=== PATIENT | female | born 1965 | race Caucasian/White ===

== ENCOUNTER 2017-11-24 12:50 | Emergency (ER) | payer MEDICARE ==
[~2017-11-24] VITALS: Ht 175.3 cm; Wt 121.1 kg
[~2017-11-24 12:50] MED LIST: COLLAGEN PO; CRANBERRY PO; DOCSEN PO; FISH1000 PO; HYDACE5 PO; IRON PO
[2017-11-24] MEDS ORDERED: METF500C PO (13:49)
== END 2017-11-24 14:23 | disposition home or self-care (01) ==
LOC: ER 12:50
DX: R10.31 Right lower quadrant pain (principal); Z79.84 Long term (current) use of oral hypoglycemic drugs
CPT/HCPCS: 99281

== ENCOUNTER → 2018-09-28 | Outpatient (CLI) | payer OTHER ==
[~2018-09-28] MED LIST changes: +METF500C PO
== END | disposition home or self-care (01) ==
LOC: LAB SHORT 14:10 → PLD 14:10
DX: B35.1 Tinea unguium (principal); L60.2 Onychogryphosis
CPT/HCPCS: 88305; 88312

== ENCOUNTER → 2019-01-30 | Outpatient (CLI) | payer OTHER ==
[~2019-01-30] MED LIST changes: +ACET500 PO; +Ascorbic Acid500 MG PO; +Cinnamon500 MG PO; +FERSU300 PO; +FISH OIL PO; +FLAX OIL1000 MG PO; +GABA100 PO; +HYDR1TAB94 PO; +Hair, Skin & N1 EACH PO; +LISI20 PO; +LUTEIN10 MG PO; +METF500 PO; +NYSTRITC TOP; +OMEP20ER PO; +PRENATAL TABLE1 EAC2 PO; +VITAMIN D-32000 UNIT PO; +[UNRECOGNIZED DRUG - OTHER] PO
== END ==
LOC: PLD 07:24 → LAB SHORT 07:24
DX: D17.1 Benign lipomatous neoplasm of skin and subcutaneous tissue of trunk (principal)
CPT/HCPCS: 88304

== ENCOUNTER 2019-03-09 09:46 | Day surgery (SDC) | payer OTHER ==
[~2019-03-09] VITALS: Ht 175.3 cm; Wt 110.9 kg
[~2019-03-09 09:46] MED LIST changes: -HYDR1TAB94 PO
--- NOTE | 2019-03-09 10:39 | NUR ---
History, Chart, Medications and Allergies reviewed before start of procedure. Patient confirms NPO status and agrees with scheduled surgery. Lungs clear T/O to Auscultation. Patient reports completing Chlorhexadine shower X2 prior to admission to hospital. Pre-Op teaching done. Pt verbalizes understanding. Patient States Post-Procedure ride home has been arranged.
--- NOTE | 2019-03-09 10:40 | NUR ---
PATIENT HAS NO JEWELRY ON AT ADMIT TO [facility].
--- NOTE | 2019-03-09 11:52 | NUR ---
PATIENT UP TO VOID IMMEDIATELY PRE-SURGICALLY. IV IN R HAND INFILTRATED AND OK'D WITH DR RAMIREZ, THAT WE WILL HAVE ONLY THE ONE WELL RUNNING IV IN THE L HAND.
--- NOTE | 2019-03-09 18:38 | NUR ---
ASSUMED CARE FROM [facility] AT APPROX 1800. SINCE ASSUMING CARE, PT REPORTING MININAL PAIN TO ABD. DRESSINGS TO ABD REMAIN CDI. PT IMPLEMENT MECHANIC WAS AT BEDSIDE AND DR. LACY CAME IN TO SPEAK WITH HER AND PT'S SISTER VIA TELEPHONE. PT IS UP WITH 1 SBA FOR BRP. PT DID VOID. IV IS SL. OFFERING PT CLEAR LIQS. CALL LIGHT WITHIN REACH. POST OP VSS AND IN PROGRESS.
--- NOTE | 2019-03-10 06:21 | NUR ---
POD 1 S/P HERNIA REPAIR. PT VSS T/O NIGHT, DRESSINGS CDI. PAIN MGD W/ORAL PAIN MEDS W/REP RELIEF. PT REESE CLEAR LIQ PO, NO C/O N/V, REP NO FLATUS YET. PT UP IN ROOM W/SBA, IS USING CALL LIGHT FOR ASSISTANCE, WILL CONT TO MONITOR UNTIL REP GIVEN TO ONCOMING RN.
--- NOTE | 2019-03-10 10:19 | NUR ---
NO NAUSEA/NO FLATUS PT DENIES NAUSEA AFTER BREAKFAST BUT REPORTS HAS NOT PASSED ANY FLATUS.
--- NOTE | 2019-03-10 15:46 | NUR ---
PASSED FLATUS PT REPORTS HUNGRY. PROVIDED TURKEY SANDWICH.
[2019-03-10] MEDS ORDERED: HYDR1TAB94 PO (16:24)
--- NOTE | 2019-03-10 16:47 | NUR ---
DISCHARGED. PT PASSING FLATUS. TOLERATED SANDWICH. REVIEWED DC PAPERWORK; PT VERBALIZED UNDERSTANDING. DC'D IV TO L HAND, CATHETER INTACT. PT LEFT UNIT IN WC, ACCOMPANIED BY RIDE WITH POSSESSIONS, PRESCRIPTION, AND DC PAPERWORK IN HAND.
== END 2019-03-10 16:42 | disposition home or self-care (01) ==
LOC: ORSCMMR 09:46 → ORD 11:15 → ORSCMMR 11:15 → SURS 18:04 → ORSCMMR 18:04 → SURS 03-10 16:42 → ORSCMMR 03-10 16:42 → SURS 03-10 16:42
PROVIDERS: Surgery
PROC: 0WJP0ZZ Inspection of Gastrointestinal Tract, Open Approach (ICD-10-PCS; principal; 2019-03-09 11:15)
PROC: 0DNU4ZZ Release Omentum, Percutaneous Endoscopic Approach (ICD-10-PCS; principal; 2019-03-09 11:15)
PROC: 0YU54JZ Supplement Right Inguinal Region with Synthetic Substitute, Percutaneous Endoscopic Approach (ICD-10-PCS; principal; 2019-03-09 11:15)
PROC: 8E0W4CZ Robotic Assisted Procedure of Trunk Region, Percutaneous Endoscopic Approach (ICD-10-PCS; principal; 2019-03-09 11:15)
PROC: 0DQ80ZZ Repair Small Intestine, Open Approach (ICD-10-PCS; principal; 2019-03-09 11:15)
DX: K40.90 Unilateral inguinal hernia, without obstruction or gangrene, not specified as recurrent (principal); K66.0 Peritoneal adhesions (postprocedural) (postinfection); S36.408A Unspecified injury of other part of small intestine, initial encounter; I10 Essential (primary) hypertension; E11.9 Type 2 diabetes mellitus without complications; Z87.891 Personal history of nicotine dependence; E66.01 Morbid (severe) obesity due to excess calories; Z68.37 Body mass index [BMI] 37.0-37.9, adult; Z79.899 Other long term (current) drug therapy
CPT/HCPCS: 49650; 49329; S2900; 82947; A9270-GY; C1781; J0690; J1100; J2250; J2405; J2704; J3010; J7120

== ENCOUNTER 2019-08-30 09:15 | Day surgery (SDC) | payer OTHER ==
[~2019-08-30] VITALS: Ht 177 cm; Wt 115.6 kg
[~2019-08-30 09:15] MED LIST changes: +HYDR1TAB94 PO
--- NOTE | 2019-08-30 10:43 | NUR ---
History, Chart, Medications and Allergies reviewed before start of procedure.Patient confirms NPO status and agrees with scheduled surgery. Lungs clear T/O to Auscultation.Patient states colon prep results clear.
--- NOTE | 2019-08-30 10:50 | NUR ---
08/30/19 1050 Jess Padilla PATIENT DETERMINED TO BE ASA APPROPRIATE FOR PROPOFOL SEDATION PRIOR TO START OF PROCEDURE BY DR. COLVIN. 3-LEAD EKG REVIEWED WITH PHYSICIAN PRIOR TO START OF PROCEDURE. PATIENT CONFIRMS NPO STATUS AND AGREES WITH SCHEDULED PROCEDURE. History, Chart, Medications and Allergies reviewed before start of procedure. MONITOR INTACT WITH CONTINUOUS PULSE OXIMETRY AND INTERMITTENT BP. O2 VIA N/C INTACT THROUGHOUT SEDATION/PROCEDURE.
--- NOTE | 2019-08-30 11:37 | NUR ---
Discharge instructions reviewed with patient. Patient verbalizes understanding. Copy given to patient to take home. Patient up to Ambulate independently. Gait steady. TOLERATING PO. TALKATIVE. Discharged via wheelchair to private car for ride home WITH CAREGIVER
== END 2019-08-30 23:05 | disposition home or self-care (01) ==
LOC: ORSCMMR 09:15 → ORD 10:30 → ORSCMMR 10:30
PROVIDERS: Internal Medicine Gastroenterology
PROC: 0DBK8ZX Excision of Ascending Colon, Via Natural or Artificial Opening Endoscopic, Diagnostic (ICD-10-PCS; principal; 2019-08-30 10:30)
PROC: 0DBN8ZX Excision of Sigmoid Colon, Via Natural or Artificial Opening Endoscopic, Diagnostic (ICD-10-PCS; principal; 2019-08-30 10:30)
DX: Z12.11 Encounter for screening for malignant neoplasm of colon (principal); D12.2 Benign neoplasm of ascending colon; K63.5 Polyp of colon; I10 Essential (primary) hypertension; Z79.84 Long term (current) use of oral hypoglycemic drugs; Z79.899 Other long term (current) drug therapy
CPT/HCPCS: 82947; 88305; J2704; J3010; J7120

== ENCOUNTER → 2019-09-07 | Outpatient (CLI) | payer OTHER ==
[2019-09-07 15:55] LABS: BASOPHILS ABSOLUTE AUTO 0.03 K/mm3 (0.00-0.23); BASOPHILS PERCENT AUTO 1 % (0-2); EOSINOPHILS ABSOLUTE AUTO 0.07 K/mm3 (0.00-0.68); EOSINOPHILS PERCENT AUTO 1 % (0-6); Hematocrit 43.3 % (33.0-51.0); Hemoglobin 14.3 g/dL (11.5-16.0); IMMATURE GRAN ABSOLUTE AUTO 0.01 K/mm3 (0.00-0.10); IMMATURE GRAN PERCENT AUTO 0 % (0-1); LYMPHOCYTES ABSOLUTE AUTO 2.15 K/mm3 (0.84-5.20); LYMPHOCYTES PERCENT AUTO 38 % (21-46); MONOCYTES ABSOLUTE AUTO 0.38 K/mm3 (0.16-1.47); MONOCYTES PERCENT AUTO 7 % (4-13); Mean Corpuscular HGB 30.5 pg (26.0-34.0); Mean Corpuscular Volume 92 fL (80-100); Mean Platelet Volume 10.1 fL (9.1-12.4); NEUTROPHILS ABSOLUTE AUTO 3.05 K/mm3 (1.96-9.15); NEUTROPHILS PERCENT AUTO 54 % (41-73); Platelet Count 235 K/mm3 (150-400); RDW Coefficient Variation 12.6 % (11.7-14.2); RDW Standard Deviation 42.4 fL (35.1-46.3); Red Blood Cell Count 4.69 M/mm3 (3.80-5.20); White Blood Cell Count 5.69 K/mm3 (4.00-11.30)
[2019-09-07 16:03] LABS: Alanine Aminotransfer (ALT/SGP 28 U/L (12-78); Albumin, Blood 3.9 g/dL (3.4-5.0); Alk Phos 76 U/L (40-126); Anion Gap 10 mmol/L (6-16); Aspartate Aminotrans (AST/SGOT 21 U/L (12-37); Bilirubin, Total 0.3 mg/dL (0.1-1.0); Blood Urea Nitrogen 10 mg/dL (8-24); Bun/Creatinine Ratio 13.3 (12.0-20.0); CO2, Blood 27 mmol/L (21-32); Calcium, Blood 8.7 mg/dL (8.5-10.1); Chloride, Blood 104 mmol/L (98-108); Creatinine, Blood 0.75 mg/dL (0.40-1.00); Globulin, Blood 3.9 g/dL (2.2-4.0); Glomerular Filtration Rate >60 (60-); Glucose, Blood 107 mg/dL (70-99); Potassium, Blood 3.8 mmol/L (3.5-5.5); Sodium, Blood 141 mmol/L (136-145); Total Protein, Blood 7.8 g/dL (6.4-8.2)
== END | disposition home or self-care (01) ==
LOC: LAB 15:46 → LAB SHORT 15:46
PROVIDERS: Internal Medicine
DX: R10.31 Right lower quadrant pain (principal)
CPT/HCPCS: 80053; 85025

== ENCOUNTER → 2023-01-19 | Outpatient (CLI) | payer OTHER ==
[2023-01-19 19:19] LABS: Microalb/Creat Ratio UR, Rand Unable to Calculate mg/g (0.000-30.000); Microalbumin, Random Urine <5.000 mg/L (0.000-20.000)
== END | disposition home or self-care (01) ==
LOC: LAB SHORT 14:09 → LAB 14:09
PROVIDERS: Family Medicine
DX: E11.9 Type 2 diabetes mellitus without complications (principal)
CPT/HCPCS: 82043; 82570

== ENCOUNTER → 2023-03-11 | Outpatient (CLI) | payer OTHER ==
[2023-03-11 17:59] LABS: BASOPHILS ABSOLUTE AUTO 0.04 K/mm3 (0.00-0.23); BASOPHILS PERCENT AUTO 1 % (0-2); EOSINOPHILS ABSOLUTE AUTO 0.12 K/mm3 (0.00-0.68); EOSINOPHILS PERCENT AUTO 2 % (0-6); Hematocrit 44.3 % (33.0-51.0); Hemoglobin 15.2 g/dL (11.5-16.0); IMMATURE GRAN ABSOLUTE AUTO 0.01 K/mm3 (0.00-0.10); IMMATURE GRAN PERCENT AUTO 0 % (0-1); LYMPHOCYTES ABSOLUTE AUTO 1.95 K/mm3 (0.84-5.20); LYMPHOCYTES PERCENT AUTO 32 % (21-46); MONOCYTES ABSOLUTE AUTO 0.41 K/mm3 (0.16-1.47); MONOCYTES PERCENT AUTO 7 % (4-13); Mean Corpuscular HGB 31.3 pg (26.0-34.0); Mean Corpuscular HGB Conc 34.3 g/dL (31.5-36.5); Mean Corpuscular Volume 91 fL (80-100); Mean Platelet Volume 10.5 fL (9.1-12.4); NEUTROPHILS PERCENT AUTO 58 % (41-73); Platelet Count 209 K/mm3 (150-400); RDW Coefficient Variation 12.6 % (11.7-14.2); RDW Standard Deviation 41.6 fL (35.1-46.3); Red Blood Cell Count 4.85 M/mm3 (3.80-5.20); White Blood Cell Count 6.03 K/mm3 (4.00-11.30)
[2023-03-11 18:15] LABS: Albumin, Blood 4.1 g/dL (3.4-5.0); Albumin/Globulin Ratio 1.2 (0.8-1.8); Bilirubin, Total 0.4 mg/dL (0.1-1.0); Bun/Creatinine Ratio 15.5 (12.0-20.0); Calcium, Blood 9.2 mg/dL (8.5-10.1); Creatinine, Blood 0.84 mg/dL (0.40-1.00); Globulin, Blood 3.5 g/dL (2.2-4.0); Total Protein, Blood 7.6 g/dL (6.4-8.2)
== END ==
LOC: LAB 17:52 → LAB SHORT 17:52
PROVIDERS: Family Medicine
DX: R07.89 Other chest pain (principal)
CPT/HCPCS: 80053; 84484; 85025

== ENCOUNTER → 2023-04-28 | Outpatient (CLI) | payer OTHER | LOC: LAB SHORT 07:36 → LAB EV 07:36 | DX: B35.1 Tinea unguium (principal); L60.1 Onycholysis; B35.2 Tinea manuum | CPT/HCPCS: 88304; 88312 ==

== ENCOUNTER → 2024-07-17 | Outpatient (CLI) | payer OTHER ==
[2024-07-17 21:12] LABS: Chlamydia Trachomatis Vaginal NOT DETECTED (NOT DETECT); Neisseria Gonorrhoea Vaginal NOT DETECTED (NOT DETECT)
== END ==
LOC: LAB SHORT 12:37 → LAB 12:37
PROVIDERS: Student in an Organized Health Care Education/Training Program
DX: N89.8 Other specified noninflammatory disorders of vagina (principal); R30.0 Dysuria; Z72.51 High risk heterosexual behavior
CPT/HCPCS: 87086; 87491; 87591

== ENCOUNTER → 2024-08-01 | Outpatient (CLI) | payer OTHER ==
[2024-08-01 20:14] LABS: Microalb/Creat Ratio UR, Rand 35.514 mg/g (0.000-30.000)
== END ==
LOC: LAB SHORT 17:08 → LAB 17:08
PROVIDERS: Family Medicine
DX: E11.9 Type 2 diabetes mellitus without complications (principal); R31.29 Other microscopic hematuria
CPT/HCPCS: 82043; 82570; 87086